=== PATIENT | male | born 1960 | race Two or more races ===

== ENCOUNTER 2024-09-29 07:47 | Emergency (ER) | payer OTHER ==
[~2024-09-29] VITALS: Ht 152.4 cm; Wt 88.5 kg
[~2024-09-29 07:47] MED LIST: CIPRO750 MG PO; TRAMADOL HCL50 MG PO; TRIPLE ANTIBIOT15 GM TP
[2024-09-29 09:48] LABS: URINE APPEARANCE Clear; URINE BILIRRUBIN Negative (NEGATIVE); URINE BLOOD Large; URINE COLOR Yellow; URINE GLUCOSE Negative (NEGATIVE); URINE KETONE Negative (NEGATIVE); URINE LEUKOCYTE Trace; URINE NITRATE Negative; URINE PROTEIN Trace (NEGATIVE); URINE UROBILINOGEN 0.2 E.U./dl
[2024-09-29 09:52] LABS: URINE BACTERIA 33.6 uL (0.0-1933); URINE EPITHELIAL CELLS 6.3 uL (0.0-38.8); URINE RBC 72.0 uL (0.0-20.8); URINE WBC 20.5 uL (0.0-23.2)
[2024-09-29 10:06] LABS: URINE CAST 0.73 uL (0.0-1.40)
[2024-09-29 10:19] LABS: BASO % 0.5 % (0.1-1.2); EOS # 0.07 (0.04-0.54); EOS % 1.1 % (0.7-7.0); LYMPH # 1.28 (1.18-3.74); LYMPH % 21.0 % (19.3-53.1); MEAN PLATELET VOLUME 10.50 fl (9.4-12.4); MONO # 0.57 (0.24-0.82); MONO % 9.3 % (4.7-12.5); NEUT # 4.14 (1.56-6.13); NEUT % 67.9 % (34.0-71.1); RED CELL DISTRIBUTION WIDTH 14.3 % (11.6-14.4)
[2024-09-29 10:46] LABS: ALT/SGPT 28 U/L (12-78); AST/SGOT 19 U/L (15-37); BILIRUBIN TOTAL 0.55 mg/dL (0.3-1.2); BILIRUBIN,CONJUGATED < 0.10 mg/dL (0.0-0.2); BUN CREA RATIO 22 (7.0-25.0); CREATININE SERUM 0.95 mg/dL (0.70-1.30); GFR 79.56; GLOBULINA 3.5 G/DL (2.4-3.5); GLUCOSE FASTING 102 mg/dL (65-100); OSMOLALITY SERUM 284 MOSM/KG (275-295); PROSTATIC SPECIFIC ANTIGEN 2.870 NG/ML (0.010-4.00)
[2024-09-29] MEDS ORDERED: METHYLPREDNISOLONE SOD SUCC 125 MG VIAL ONE (11:24)
[2024-09-29] MEDS ORDERED: DIPHENHYDRAMINE HCL 50 MG/ML VIAL 1ML ONE (11:24)
[2024-09-29] MEDS ORDERED: DIPHENHYDRAMINE HCL 50 MG/ML VIAL 1ML IV ONE (11:30)
[2024-09-29] MEDS ORDERED: METHYLPREDNISOLONE SOD SUCC 125 MG VIAL IV ONE (11:30)
== END 2024-09-29 16:16 | disposition home or self-care (01) ==
LOC: ER 07:47
PROVIDERS: Emergency Medicine
DX: N20.0 Calculus of kidney (principal); R10.9 Unspecified abdominal pain; Z91.013 Allergy to seafood
CPT/HCPCS: 36415; 74177; 96365; 99284; J1200; J3490; Q9965